=== PATIENT | male | born 2000 | race Caucasian/White ===

== ENCOUNTER 2021-08-22 22:18 | Emergency (ER) | payer OTHER, SELFPAY ==
[2021-08-22 23:04] VITALS: BP 184/96; PULSE 100; RESP 18; TEMP 36.3; O2SAT 97; BMI 28.8
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
[2021-08-23] MEDS: Diphth,Pertus(ACell),Tet Adult 0.5 ML SYRINGE IM (05:58)
[2021-08-23] MEDS: Bacitracin Oint 14 GM TUBE 1 APPL TOPICAL (06:00)
== END 2021-08-23 06:05 | disposition home or self-care (01) ==
PROVIDERS: Emergency Provider Student in an Organized Health Care Education/Training Program
DX: T25.121A Burn of first degree of right foot, initial encounter (principal); T31.0 Burns involving less than 10% of body surface; X10.2XXA Contact with fats and cooking oils, initial encounter; Y93.G3 Activity, cooking and baking; Y92.9 Unspecified place or not applicable; Y99.0 Civilian activity done for income or pay
CPT/HCPCS: 16000; 90471; 90715; 99283; 99284

== ENCOUNTER 2023-11-01 10:38 | Outpatient (AMB) | payer OTHER, SELFPAY ==
--- NOTE | 2023-11-01 11:44 | MHC.OFFWIV ---
Intake Vital Signs 11/01/23 11:45 Height 5 ft 8 in Weight 194 lb BMI 29.5 BP 140/100 H Blood Pressure Location Lt brachial Position Sitting Pulse 98 Pulse Source Pulse Oximeter Pulse Oximetry (%) 98 Oxygen Delivery Method Room Air Intake Visit Reasons: EP [facility] [phone] Intake Note: pt is here today for pink eye started yesterday Patient Tobacco Use Status: Current everyday Tobacco user Allergies No Known Allergies Allergy (Verified 11/01/23 11:45) Do you need a note to return to daycare/school/sports/work: Yes HPI HPI Comments History of Present Illness Details 23 y/o male patient who presents to walk in clinic with c/o bilateral pink eyes. Reports waking up this morning and notice his eyes were covered with yellow crusty drainage. Denies any vision changes. Denies URI symptoms. [facility], LATER [facility] Social History Patient Tobacco Use Status: Current everyday Tobacco user Review of Systems Const All systems reviewed & are unremarkable except as noted in HPI and below Physical Exam Vital Signs: Last Vital Signs Pulse 98 11/01/23 11:45 BP 140/100 H 11/01/23 11:45 Pulse Ox 98 11/01/23 11:45 Oxygen Delivery Method Room Air 11/01/23 11:45 BMI result Body Mass Index 29.5 Const General: comfortable and no acute distress Orientation/consciousness: patient oriented x3 Eyes Eyelids: Yes eyelids normal Conjunctivae: conjunctival abnormal bilateral conjunctival injection diffuse and discharge purulent Pupils: Equal, round and reactive pupils present EOM: EOMs intact bilaterally Direct Ophthalmoscopy: no photophobia Neuro General: patient oriented x3 and gait normal Cranial nerves: Yes Equal, round and reactive pupils present Psych Speech and movement: Normal speech and movement present Attitude: cooperative Assessment & Plan Assessment & Plan (1) Bacterial conjunctivitis of both eyes: Code(s): H10.9 - Unspecified conjunctivitis; B96.89 - Other specified bacterial agents as the cause of diseases classified elsewhere Plan: - Wash hands frequently - Do not touch eyes or face - Keep eyes clean, wash with warm water. Medications: New erythromycin 1 appl ophthalmic (eye) BEDTIME 7 days 3.5 grams 0RF B96.89 - Other specified bacterial agents as the cause of diseases classified elsewhere, H10.9 - Unspecified conjunctivitis Coding Level of Care Code Est Pt Level 3 (17987) Diagnoses Bacterial conjunctivitis of both eyes H10.9; B96.89 Time Spent (min) 15
[2023-11-01 11:45] VITALS: BP 140/100; PULSE 98; O2SAT 98; BMI 29.5
== END 2023-11-01 12:41 | disposition home or self-care (01) ==
PROVIDERS: Visit Provider Nurse Practitioner Family
DX: H10.9 Unspecified conjunctivitis (principal); B96.89 Other specified bacterial agents as the cause of diseases classified elsewhere
CPT/HCPCS: 99213

== ENCOUNTER 2023-12-24 12:07 | Outpatient (AMB) | payer OTHER, SELFPAY ==
[2023-12-24 12:08] VITALS: BP 138/68; PULSE 90; O2SAT 97; BMI 29.5
--- NOTE | 2023-12-24 12:08 | A.OFFPC_ITS ---
Vital Signs 12/24/23 12:08 Height 5 ft 8 in Weight 194 lb BMI 29.5 BP 138/68 Blood Pressure Location Rt brachial Position Sitting Pulse 90 Pulse Source Pulse Oximeter Pulse Oximetry (%) 97 Oxygen Delivery Method Room Air Intake Visit Reasons: [employer] Est Care Req PE Intake Note: Pt is here today as a New Patient to est care/ PE Allergies amoxicillin Adverse Reaction (Verified 12/24/23 12:41) rash Medication List - Last Reconciled 12/24/23 by MADY Leong albuterol sulfate 90 mcg/actuation 1 inh inhalation QID Tobacco use date assessed: 12/24/23 Dental Screening Dental Screen Date: 12/24/23 Did you have a dental visit in the last 12 months?: No Was dental information given to patient?: No HPI HPI Comments History of Present Illness Details Patient is a 23-year-old male who I am meeting for the 1st time. He has a past medical history significant for asthma. Up-to-date with tetanus vaccine. No surgical history. Patient states that he has been using his albuterol inhaler 2-3 times per day. Does have history of vaping nicotine. States that he occasionally gets chest tightness during the day utilizes his albuterol inhaler which improves the symptoms. Patient has never utilized a daily inhaler and would like to. Patient also states he has a hard time staying still, often fidgeting during the day. Needs frequent stimulation. Would like testing for ADHD. Patient will meet with community navigator to assist in finding testing for this. Will order fasting labs. [facility] Family History (Updated 12/24/23 @ 12:14 by Rosalinda Gaspar CMA) Mother Substance use disorder Mental health disorder Father Substance use disorder Maternal Uncle Substance use disorder Maternal Grandfather Substance use disorder Maternal Grandmother Mental health disorder Social History Housing: Condominium Patient Tobacco Use Status: Current everyday Tobacco user e-Cigarette/Vaping Use: Currently Using service: No Current occupational status: employed Cognitive needs: No Hearing needs: No Vision needs: No Questionnaire PHQ-9 Over the last 2 weeks, how often have you been bothered by any of the following problems? 1. Little interest or pleasure in doing things: not at all 2. Feeling down, depressed, or hopeless: several days 3. Trouble falling or staying asleep, or sleeping too much: not at all 4. Feeling tired or having little energy: several days 5. Poor appetite or overeating: not at all 6. Feeling bad about yourself - or that you are a failure or have let yourself or your family down: more than half the days 7. Trouble concentrating on things, such as reading the newspaper or watching television: nearly every day 8. Moving or speaking so slowly that other people could have noticed. Or the opposite - being so fidgety or restless that you have been moving around a lot more than usual: nearly every day 9. Thoughts that you would be better off or of hurting yourself in some way: not at all Total score: 10 Depression Screening Interpretation: Negative Depression Screening Done: Yes 07086 - PHQ-9 Billing: Yes Source: Developed by Drs. Farhan Vaca, Abbie Christopher, Nahun Olmstead and colleagues, with an educational kevin from [employer]. Thrive Questionnaire Date Thrive assessed: 12/24/23 I am a: Patient What is your living situation today?: I have a steady place to live Within the past 12 months, did the food you bought not last and you didn't have the money to get more?: Never true Within the past 12 months, did you worry whether your food would run out before you got money to buy more?: Sometimes True Do you have trouble paying for medicines?: No Do you have trouble getting transportation to medical appointments?: No Do you have trouble paying your heating and electricity bill?: No Do you have trouble taking care of your child, family member or friend?: No Do you have trouble with day-to-day activities such as bathing, preparing meals, shopping, managing finances, etc.?: No Are you currently unemployed and looking for a job?: No Are you interested in more education?: No THRIVE Score: 1 AUDIT C Alcohol Use Questionnaire (AUDIT-C) 1. How often do you have a drink containing alcohol?: 2-3 times a week 2. How many drinks containing alcohol do you have on a typical day when you are drinking?: 1 or 2 3. How often do you have six or more drinks on one occasion?: Less than monthly Total Score: 4 KORINA-7 AMB Questionnaire KORINA-7 Date KORINA - 7 assessed: 12/24/23 Feeling nervous, anxious, or on edge: 1 = Several days Not being able to stop or control worryin = Nearly every day Worrying too much about different things: 2 = More than half the days Trouble relaxin = Several days Being so restless that it is hard to sit still: 2 = More than half the days Becoming easily annoyed or irritable: 3 = Nearly every day Feeling afraid as if something awful might happen: 3 = Nearly every day Total KORINA-7 score (0-4 normal; 5-9 mild; 10-14 moderate; 15-21 severe): 15 Source: Developed by Drs. Farhan Vaca, Abbie Christopher, Nahun Olmstead and colleagues, with an educational kevin from [employer]. KORINA-7 Assessment Billing KORINA-7 Assessment Tool: KORINA-7 Assessment 66366 (Patient would like referral to therapist.) Review of Systems Const Details: Constitutional : No Weight loss, No Fever, No Chills, No Fatigue, No Malaise ENT/Mouth : No sore throat, No Rhinorrhea Eyes: No Eye Pain, No Swelling, No Redness Cardiovascular : No Chest Pain, No SOB, No Dyspnea on Exertion, No Orthopnea, No Edema, No Palpitations Respiratory : No Cough, No Sputum, No Wheezing, Admits intermittent chest tightness. Gastrointestinal : No Nausea, No Vomiting, No Diarrhea, No Constipation, No abdominal Pain, No Hematochezia, No Melena Genitourinary : No Dysuria, No Urinary Frequency, No Hematuria, Musculoskeletal : No joint pain, No Myalgias, No Joint Swelling Skin : No Skin Lesions, No rash Neuro : No Weakness, No Numbness, No Dizziness, No Headache Psych : Admits some Anxiety/Panic, No Depression. Denies SI/HI. Heme/Lymph: No Bruising, No Bleeding,No Lymphadenopathy Endocrine : No Polyuria, No Polydipsia All other systems reviewed and are negative Physical exam (Primary Care) Vital Signs: Last Vital Signs Pulse 90 12/24/23 12:08 BP 138/68 12/24/23 12:08 Pulse Ox 97 12/24/23 12:08 Oxygen Delivery Method Room Air 12/24/23 12:08 BMI result Body Mass Index 29.5 Tobacco/Smoking Status: Tobacco use Status Tobacco use date assessed 12/24/23 12/24/23 12:10 Patient Tobacco Use Status Current everyday Tobacco 12/24/23 12:10 e-Cigarette/Vaping Use Currently Using 12/24/23 12:20 Are you ready to quit: Yes Tobacco cessation counseling provided: Yes Items discussed: Nicotine replacement Relapse Prevention: discussed the importance of a supportive environment and discussed dietary, exercise and/or lifestyle changes CPT code: 40027 - 4-10 Minutes Depression Screening Interpretation: Negative Const Other: Appearance: Alert.? Oriented X3.? No acute distress.? Head: Normocephalic, atraumatic, Eyes: Pupils equal, round and reactive to light.? Neck: Normal inspection.? Neck supple.? CVS: Normal heart rate and rhythm.? Pulses normal.? Respiratory: No respiratory distress.? Breath sounds normal.? Neuro: Oriented X 3.? No motor deficit.? No sensory deficit. CN 2-12 intact Assessment and Plan Assessment & Plan (1) Asthma: Comment: Will refill patient's albuterol inhaler and will start him on Symbicort. Code(s): J45.909 - Unspecified asthma, uncomplicated Qualifiers: Asthma severity: moderate Asthma persistence: unspecified Asthma complication type: unspecified Qualified Code(s): J45.909 - Unspecified asthma, uncomplicated (2) Nicotine dependence: Comment: Patient will get nicotine replacement therapy will meet with community navigator to assist in smoking cessation Code(s): F17.200 - Nicotine dependence, unspecified, uncomplicated Qualifiers: Nicotine product type: other Substance use status: uncomplicated Qualified Code(s): F17.290 - Nicotine dependence, other tobacco product, uncomplicated (3) ADHD: Comment: Patient meeting with community navigator to assist in finding testing center for ADHD. Code(s): F90.9 - Attention-deficit hyperactivity disorder, unspecified type Qualifiers: Attention deficit-hyperactivity disorder type: unspecified Qualified Code(s): F90.9 - Attention-deficit hyperactivity disorder, unspecified type (4) Anxiety: Comment: Patient will get referral to therapy. Code(s): F41.9 - Anxiety disorder, unspecified Plan: Take your medications as prescribed. If you were prescribed antibiotics today, it is important that you take your medication to their entirety, do not skip any doses, do not finish them early. Follow-up with your primary care provider this week. Return to the emergency department with new or worsening symptoms. Such as fevers, chills, chest pain, shortness of breath, nausea, vomiting, dizziness, headache, vision changes, lethargy In case of emergency call 911 Plan Patient will follow-up physical exam in 2 months. Orders: Orders Complete Blood Count Auto Diff Today Z13.0 - Encounter for screening for diseases of the blood and blood-forming organs and certain disorders involving the immune mechanism Comprehensive Met. Panel Today Z91.89 - Other specified personal risk factors, not elsewhere classified Lipid Panel Today Z13.220 - Encounter for screening for lipoid disorders Vitamin D 25-OH (D2 and D3) Today Z13.21 - Encounter for screening for nutritional disorder Vitamin B12 Today Z13.21 - Encounter for screening for nutritional disorder Vitamin B6 Today Z13.21 - Encounter for screening for nutritional disorder UA CC w/rflx Micro + Cult Today Z13.89 - Encounter for screening for other disorder TSH reflex Free T4 Today Z13.29 - Encounter for screening for other suspected endocrine disorder Medications: New budesonide-formoterol 160-4.5 mcg/actuation (Symbicort) 2 puffs inhalation Q12H 10.2 grams 0RF albuterol sulfate 90 mcg/actuation 1 inh inhalation QID 8.5 grams 0RF nicotine 1 patch transdermal DAILY 28 ea 0RF Coding Level of Care Code Est Pt Level 4 (07753) Diagnoses Moderate asthma, unspecified whether complicated, unspecified whether persistent J45.909 Asthma severity: moderate Asthma persistence: unspecified Asthma complication type: unspecified Other tobacco product nicotine dependence, uncomplicated F17.290 Nicotine product type: other Substance use status: uncomplicated Attention deficit hyperactivity disorder (ADHD), unspecified ADHD type F90.9 Attention deficit-hyperactivity disorder type: unspecified Anxiety F41.9 Additional Codes KORINA-7 Assessment Billing - KORINA-7 Assessment Tool: KORINA-7 Assessment [id number] ([id number]) Vital Signs *Quality* - CPT code: 29150 - 4-10 Minutes ([id number]) Time Spent (min) 32
== END 2023-12-24 14:22 | disposition home or self-care (01) ==
PROVIDERS: Visit Provider Nurse Practitioner Primary Care
DX: J45.909 Unspecified asthma, uncomplicated (principal); F17.290 Nicotine dependence, other tobacco product, uncomplicated; F90.9 Attention-deficit hyperactivity disorder, unspecified type; F41.9 Anxiety disorder, unspecified
CPT/HCPCS: 99214

== ENCOUNTER 2024-02-19 07:48 | Outpatient (REF) | payer OTHER, SELFPAY ==
[2024-02-19 11:26] LABS: MANUAL DIFF FLAG NO
[2024-02-19 11:43] LABS: Appearance Urine Clear; Color Urine Yellow; Glucose Urine UA Negative (Negative); Leukocyte Esterase Urine Negative (Negative); Nitrite Urine Negative (Negative); Urine Blood Negative (Negative); Urine Ketones Negative (Negative); Urine Protein Negative (Neg-Trace)
[2024-02-19 11:52] LABS: Basophils Absolute Auto 0.1 X10*3/uL (0.0-0.2); Basophils Percent Auto 0.7 % (0-2); Eosinophils Absolute Auto 0.3 X10*3/uL (0.0-0.4); Eosinophils Percent Auto 3.6 % (0-4); Hematocrit 43.7 % (42.0-52.0); Hemoglobin 14.7 g/dl (14.0-18.0); Imm Gran Abs Auto 0.03 X10*3/uL (0.00-0.03); Imm Gran Pct Auto 0.4 % (0.0-0.4); Lymphocytes Absolute Auto 1.3 X10*3/uL (1.2-4.9); Lymphocytes Percent Auto 18.8 % (20-40); Mean Corpuscular HGB Conc 33.6 g/dl (31.0-36.0); Mean Corpuscular Hemoglobin 31.7 pg (27.0-33.0); Mean Corpuscular Volume 94.2 fL (80.0-98.0); Mean Platelet Volume 9.2 fL (9.4-12.4); Monocytes Absolute Auto 0.6 X10*3/uL (0.1-1.2); Monocytes Percent Auto 9.1 % (2-11); Neutrophils Absolute Auto 4.7 x10*3/uL (2.0-8.3); Neutrophils Percent Auto 67.4 % (45-73); Platelet Count 367 X10*3/uL (160-400); Red Blood Count 4.64 X10*6/uL (4.60-5.80); Red Cell Distribution Width 12.7 % (11.0-16.0)
[2024-02-19 12:21] LABS: Alanine Aminotransferase 24 U/L (0-40); Albumin Level 4.2 g/dL (3.5-5.0); Alkaline Phosphatase 65 U/L (39-117); Anion Gap 12 (12-20); Aspartate Amino Transferase 19 U/L (5-37); Bilirubin Total 0.2 mg/dL (0.0-1.0); Blood Urea Nitrogen 15 mg/dL (9-16); Calcium 9.1 mg/dL (8.4-10.2); Carbon Dioxide 22 mmol/L (22-29); Chloride 112 mmol/L (96-108); Cholesterol 162 mg/dL (<200); Estimated Glomerular Filt Rate > 60; Glucose Random 93 mg/dL (60-115); HDL Cholesterol 37 mg/dL (>40); LDL Cholesterol Calculated 80 mg/dL (<100); Potassium 4.5 mmol/L (3.3-5.1); Sodium 141 mmol/L (135-145); Total Protein 6.7 g/dL (6.5-8.0); Triglycerides 226 mg/dL (<150)
[2024-02-19 12:41] LABS: TSH reflex Free T4 1.16 uIU/mL (0.32-4.0)
[2024-02-19 12:46] LABS: Vitamin B12 410 pg/mL (200-900)
[2024-02-23 15:19] LABS: Vitamin D 25-OH, D2 <4 ng/mL; Vitamin D 25-OH, D3 22 ng/mL; Vitamin D 25-OH, Total 22 ng/mL (30-100)
[2024-02-23 16:12] LABS: Vitamin B6 8.9 ng/mL (2.1-21.7)
== END 2024-02-19 07:49 | disposition home or self-care (01) ==
LOC: HO.HMGCLDS 07:48
PROVIDERS: Visit Provider Nurse Practitioner Primary Care
DX: Z13.0 Encounter for screening for diseases of the blood and blood-forming organs and certain disorders involving the immune mechanism (principal); Z91.89 Other specified personal risk factors, not elsewhere classified; Z13.21 Encounter for screening for nutritional disorder; Z13.29 Encounter for screening for other suspected endocrine disorder; Z13.220 Encounter for screening for lipoid disorders; Z13.89 Encounter for screening for other disorder
CPT/HCPCS: 36415; 80053; 80061; 81003; 82306; 82607; 84207; 84443; 85025

== ENCOUNTER 2025-01-10 13:11 | Outpatient (REF) | payer OTHER, SELFPAY ==
--- NOTE | ~2025-01-10 | XR_ITS ---
CLINICAL HISTORY: M79.674 - Pain in right toe(s) 3 view right foot Comparison: None Findings: There are nondisplaced fractures involving the right 4th and 5th metatarsal neck. No ankle effusion. No radiopaque foreign body. IMPRESSION: Right 4th and 5th metatarsal neck fractures. This document has been electronically signed by: Jose Dalton MD on 01/10/2025 13:55:18
--- OUTSIDE RECORDS SUMMARY | 2025-01-10 13:29 | XMS_ITS | Clinical Summary ---
Author Organization [facility] Address [address] [place] [id number] Phone Care Team Providers Care Electromechanical Engineer Name Role Phone Sherrie Linares NP Primary Care Provider Un available Immunizations Immunization Administration Dates Next Due DTaP 5 10/04/2004, 2,03/25/2001,01/23,2000 H1N1 09/08/2009 HPV, Quadrivalent 06/30/2013,02/13/2013,01/23/20 12 Hep A, ped/adol 04/03/2016,08/06/2014 Hep B, ped/adol 06/25/2001,2000,2000 Hib (PRP-T) 09/17/2001, 1,01/23/2001,11/23 IPV 10/04/2004, 2,01/23/2001,11/23 Influenza Split 06/30/2013 Influenza, injectable, quadrivalent 10/20/2015,1 10/07/2013 Influenza, injectable, quadr ivalent, preservative free 10/20/2015 Influenza, injectable, trivalent 09/08/2009 MMR 10/04/2004,12/16/2001 Meningococcal Conj (Menactra) MCV4P 01/23/2012 Pneumococcal Conjugate 03/25/2001,01/23/2001, Tdap 01/23/2012 Varicella 11/27/2007,09/25/2001 Family History Relation Name Status Comments Father Alive Father: Alive a nd well Maternal Grandfather Materna l grandfather: ETOH Maternal Grandmother Materna l grandmother: Bipolar disorder Mother Mother: bipolar /substance abuse Other Family history of Cancer, breast, No family history of Sudden /NM under age 55, No family history of Thrombophilia, Family history of Stroke, No family history of Dental caries, No family history of CVA (Stroke), Family history of Hodgkin's disease Social History Tobacco Use Types Packs/Day Years Used Date Smoking Tobacco: Never Comments:Never smoker Sex and Gender Information Value Date Recorded Sex Assigned at Not on file Legal Sex Male 5:23 PM EDT Gender Identity Not on file Sexual Orientation Not on file Last Filed Vital Signs Vital Sign Reading Time Taken Comments Blood Pressure 108/68 04/03/2016 12:00 AM EDT Pulse 83 04/03/2016 12:00 AM EDT Temperature 36.4 ??C (97.6 ??F) 04/03/2016 12:00 AM E DT Respiratory Rate - - Oxygen Saturation 96% 12/02/2010 12:00 AM EDT Inhaled Oxygen Concentration - - Weight 85.1 kg (187 lb 9.6 oz) 04/03/2016 12:00 AM EDT Height 171.5 cm (5' 7.5 ) 04/03/2016 12:00 AM ED T Body Mass Index 28.95 04/03/2016 12:00 AM EDT Plan of Treatment Health Maintenance Due Date Last Done Comments DTaP,Tdap,and Td Vaccines (7 - Td or Tdap) 01/22/2022 01/23/2012, 10/04/2004, 04/11/2002, Additional history exists Influenza Vaccines (#1) 2024 10/20/19 16, 10/20/2015, 08/06/2014, Additional history exists COVID-19 Vaccine ( season) 2024 Pneumococcal Vaccine Aged Out 03/25/2001, 01/23/2001, 2000 No longer eligible based on patient's age to complete this topic Hepatitis B Vaccines Completed 06/25/2001, 2000, 2000 HIB Vaccines Completed 09/17/2001, 02/26, 01/23/2001, Additional history exists IPV Vaccines Completed 10/04/2004, 03/27, 01/23/2001, Additional history exists MMR Vaccines Completed 10/04/2004, 12/16/2001 Varicella Vaccines Completed 11/27/2007, 09/25/2001 Meningococcal Vaccine Aged Out 01/23/2012 No thomas rakesh eligible based on patient's age to complete this topic HPV Vaccines Completed 06/30/2013, /, 01/23/2012 Hepatitis A Vaccines Completed 04/03/2016, 08/06/20 14 Men B Vaccine Aged Out No longer zoila ible based on patient's age to complete this topic Insurance [facility] NON PCC Care Teams Electromechanical Engineer Relationship Specialty Start Date End Date Sherrie Linares NP PCP - General 04/06/17
--- OUTSIDE RECORDS SUMMARY | 2025-01-10 13:29 | XMS_ITS | Encounter Summary ---
Author Organization [facility] Address [address] [place] [phone] Phone Care Team Providers Care Cask Maker Name Role Phone Sherrie Linares NP Primary Care Provider Un available Encounter Details Date Type Department Care Team (Late st Contact Info) Description 04/12/2017 Conversion Encounter [facility] - [address] [id number] Social History Tobacco Use Types Packs/Day Years Used Date Smoking Tobacco: Never Comments:Never smoker Sex and Gender Information Value Date Recorded Sex Assigned at Not on file Legal Sex Male 5:23 PM EDT Gender Identity Not on file Sexual Orientation Not on file documented as of this encounter Plan of Treatment Not on file documented as of this encounter Visit Diagnoses Not on filedocumented in this encounter Care Teams Cask Maker Relationship Specialty Start Date End Date Sherrie Linares NP PCP - General 04/06/17 documented as of this encounter
--- OUTSIDE RECORDS SUMMARY | 2025-01-10 13:29 | XMS_ITS | Encounter Summary ---
Author Organization [facility] Address [address] [place] [id number] Phone Care Team Providers Care Shop Foreman Name Role Phone Sehrrie Linares PET STYLIST Primary Care Provider Un available Encounter Details Date Type Department Care Team (Late st Contact Info) Description 02/15/2012 Documentation [facility] Family Medicine [facility] [place] [address] Family Medicine, Physician [address] [place], [place] [address] Social History Tobacco Use Types Packs/Day Years Used Date Smoking Tobacco: Never Assessed Sex and Gender Information Value Date Recorded Sex Assigned at Not on file Legal Sex Male 5:23 PM EDT Gender Identity Not on file Sexual Orientation Not on file documented as of this encounter Plan of Treatment Not on file documented as of this encounter Visit Diagnoses Not on filedocumented in this encounter Care Teams Shop Foreman Relationship Specialty Start Date End Date Sherrie Linares NP PCP - General 04/06/17 documented as of this encounter
== END 2025-01-10 13:12 | disposition home or self-care (01) ==
LOC: HO.HMGCX 13:11
PROVIDERS: Visit Provider Physician Assistant
DX: M79.674 Pain in right toe(s) (principal); S92.354A Nondisplaced fracture of fifth metatarsal bone, right foot, initial encounter for closed fracture; S92.344A Nondisplaced fracture of fourth metatarsal bone, right foot, initial encounter for closed fracture
CPT/HCPCS: 73630; 99202

== ENCOUNTER 2025-01-10 13:11 | Outpatient (AMB) | payer OTHER, SELFPAY ==
[2025-01-10 13:17] VITALS: BP 136/70; PULSE 117; RESP 16; TEMP 37; O2SAT 98; BMI 29.3
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
== END 2025-01-10 14:33 | disposition home or self-care (01) ==
PROVIDERS: Visit Provider Physician Assistant
DX: M79.674 Pain in right toe(s) (principal); S92.354A Nondisplaced fracture of fifth metatarsal bone, right foot, initial encounter for closed fracture; S92.344A Nondisplaced fracture of fourth metatarsal bone, right foot, initial encounter for closed fracture

== ENCOUNTER → 2025-01-10 13:30 | Outpatient (BNV) | payer OTHER, SELFPAY | PROVIDERS: Visit Provider Radiology Vascular & Interventional Radiology | DX: S92.344A Nondisplaced fracture of fourth metatarsal bone, right foot, initial encounter for closed fracture (principal); S92.354A Nondisplaced fracture of fifth metatarsal bone, right foot, initial encounter for closed fracture | CPT/HCPCS: 73630 ==